=== PATIENT | female | born 1965 | race Asian ===

== ENCOUNTER 2020-04-09 08:19 | Outpatient (REF) | payer OTHER, SELFPAY ==
[2020-04-09 08:52] LABS: COVID-19 Test Negative (Negative)
== END 2020-04-09 08:20 | disposition home or self-care (01) ==
LOC: HO.EMPCOV 08:19
PROVIDERS: Visit Provider Internal Medicine
DX: Z20.828 Contact with and (suspected) exposure to other viral communicable diseases (principal)
CPT/HCPCS: 87635; C9803

== ENCOUNTER → 2020-04-10 10:46 | Outpatient (BNVA) | payer SELFPAY | DX: Z76.89 Persons encountering health services in other specified circumstances (principal) ==